=== PATIENT | female | born 1975 | race Caucasian/White ===

== ENCOUNTER 2025-02-27 11:17 | Emergency (ER) | payer OTHER ==
[~2025-02-27] VITALS: Ht 154.9 cm; Wt 56.8 kg
[2025-02-27 11:18] VITALS: TEMP 98.1
[2025-02-27] MEDS ORDERED: METH5SOL20 PO (11:21)
[2025-02-27] MEDS ORDERED: APIX5TAB PO (11:21)
[2025-02-27] MEDS ORDERED: ALBU18HF12 IH (11:21)
[2025-02-27] MEDS ORDERED: METO50 PO (11:21)
[2025-02-27 12:44] VITALS: BP 110/65; PULSE 69; RESP 16; O2SAT 99
[2025-02-27] MEDS: KETOROLAC TROMETHAMINE 30 MG/ML VIAL IM ONE (13:47)
[2025-02-27] MEDS: LIDOCAINE 1% 10 ML VIAL SQ ONE (13:47)
[2025-02-27] MEDS ORDERED: CLIN-142 PO (14:17)
== END 2025-02-27 14:30 | disposition home or self-care (01) ==
LOC: EMS 11:20
DX: N76.4 Abscess of vulva (principal); J45.909 Unspecified asthma, uncomplicated; I10 Essential (primary) hypertension; F17.210 Nicotine dependence, cigarettes, uncomplicated; Z88.2 Allergy status to sulfonamides; Z86.718 Personal history of other venous thrombosis and embolism; Z79.899 Other long term (current) drug therapy; Z79.01 Long term (current) use of anticoagulants
CPT/HCPCS: 99284; 56405; 96372; J1885; J3490